=== PATIENT | male | born 1970 | race African-American/Black ===

== ENCOUNTER 2019-05-13 03:07 | Emergency (ER) | payer OTHER ==
[~2019-05-13] VITALS: Ht 175.3 cm; Wt 77.0 kg
[2019-05-13 03:10] VITALS: BP 125/80
== END 2019-05-13 05:54 | disposition left against medical advice (07) ==
LOC: ER 03:07
DX: Z53.21 Procedure and treatment not carried out due to patient leaving prior to being seen by health care provider (principal)